=== PATIENT | male | born 1960 | race Caucasian/White ===

== ENCOUNTER 2018-03-17 17:27 | Emergency (ER) | payer MEDICARE, SELFPAY ==
[2018-03-17 17:29] VITALS: BP 135/80; PULSE 114; RESP 14; TEMP 37.1; O2SAT 99; BMI 23.6
[2018-03-17 18:25] LABS: Absolute Lymphocyte Count 1.69 X10^3/ul (0.83-4.51); Basophil# 0.06 X10^3/uL; Basophil% 0.8 % (0-1); Eosinophil# 0.25 X10^3/uL; Eosinophils% 3.3 % (0-5); Hematocrit 42.1 % (40-54); Hemoglobin 14.4 g/dl (13.0-16.5); Lymphocyte # 1.69 X10^3/ul (4.0); Lymphocyte % 22.6 % (19-41); Mean Corp Hgb Conc 34.2 g/gl (32-36); Mean Corpuscular Volume 90.7 fL (80-94); Mean Platelet Vol. 8.2 fl (6.2-12.0); Monocyte# 0.46 X10^3/uL; Monocyte% 6.1 % (0-10); Neutrophil # 5.01 X10^3/uL (2.7-7.7); Neutrophil % 67.1 % (47-70); Platelet Count 290 K/mm3 (150-450); RBC Distribution Width CV 12.8 % (11.6-14.6); RBC Distribution Width SD 42.2 fl (35.1-43.9); Red Blood Count 4.64 M/mm3 (4.6-6.2); White Blood Count 7.5 K/mm3 (4.4-11.0)
[2018-03-17 18:30] LABS: POSITIVE COUNT NO; POSITIVE DIFFERENTIAL NO; POSITIVE MORPHOLOGY NO
[2018-03-17 18:37] LABS: Anion Gap 10 (5-15); BUN 15 mg/dL (7-18); BUN/Creat Ratio 12.5 RATIO (10-20); Chloride 104 mmol/L (98-107); EST Glomerular Filtration Rate 66 mL/min (>60); Est Glom Filt Rate - Afr Amer 80 mL/min (>60); Estimated Creatinine Clearance 79.92 ml/min; Glucose 111 mg/dL (74-106); Potassium 3.6 mmol/L (3.5-5.1); Sodium Level 140 mmol/L (136-145)
--- NOTE | 2018-03-17 20:09 | ED.VISSUMM ---
- ER Visit Summary Date of Service: 03/17/18 Chief Complaint: Lower extremity edema. History of Present Illness: The patient is a 57 M with one-week history of right lower extremity edema mostly around the ankle. No calf tenderness. No erythema or calor. No fever or chills. Pain is mildly still able to ambulate he normally uses a walker or cane. He has a history of fibromyalgia and rheumatoid arthritis. No recent trauma. Physical Examination: Not appear in acute distress. Moist mucous membranes, no obvious facial deformity No C-spine tenderness supple neck. Regular rate and rhythm without any obvious murmurs Clear lungs bilaterally speaking in full sentences without any obvious respiratory distress Abdomen soft and nontender no guarding or rebound Moves all extremities without any difficulty he has some tenderness over the right ankle region. Full range of motion without effusion. He has edema around the ankle. No calf pain negative Homans. No increased calor or significant erythema present. Skin does not show any obvious rashes or lesions, no trauma. Alert oriented ?3 with no gross focal deficit Test Results: [X-ray venous ultrasound and white count are normal] Emergency Department Course and Treatment: [This may be early cellulitis but it is likely just peripheral edema, I will err on the side of caution and treat with Keflex will be discharged to follow-up with PCP] Disposition: [Discharge stable condition] Impression: [Right lower extremity edema] This note was generated with [employer] dictation software. It may contain incorrect words, spelling, and punctuation that were not noted in review of the chart prior to signing ED Disposition - Plan for ED Patient: Disposition: Home or Assisted Living Chief Complaint: Cellulitis Instructions: ED Leg Swelling Unilateral Prescriptions: Cephalexin [Keflex] 500 mg PO Q6 #40 cap Referrals: Malgorzata Nunn [Primary Care Provider] - 3-5 Days
[2018-03-17] MEDS: Cephalexin 250 MG Capsule 500 MG PO (20:24)
[2018-03-17] MEDS: oxyCODONE 5 MG Tablet PO (20:24)
[2018-03-17 20:25] VITALS: BP 130/90; PULSE 76; RESP 16; O2SAT 98
== END 2018-03-17 20:29 | disposition home or self-care (01) ==
PROVIDERS: Emergency Provider Emergency Medicine; Family Provider Family Medicine; PCP Family Medicine
DX: R60.0 Localized edema (principal); M79.7 Fibromyalgia; M19.90 Unspecified osteoarthritis, unspecified site; M06.9 Rheumatoid arthritis, unspecified
CPT/HCPCS: 73610; 80048; 85025; 93971; 99284; A4216